=== PATIENT | female | born 1960 ===

== ENCOUNTER → 2021-02-11 | Outpatient (REF) | payer BC ==
[2021-02-11 18:14] LABS: CREATININE, URINE 19.4 MG/DL; MALB URINE SIEMENS < 5.0 MG/L; MAU/CREAT RATIO 25.7 MCG/MG (0.0-30.0)
== END ==
LOC: M LAB REF 16:52
PROVIDERS: ATTEND Nurse Practitioner Family
DX: E11.65 Type 2 diabetes mellitus with hyperglycemia (principal)